=== PATIENT | male | born 1935 | race Caucasian/White ===

== ENCOUNTER 2023-10-02 19:14 | Emergency (ER) | payer BC ==
--- NOTE | 2023-10-02 19:48 | ED ---
General Adult HPI - General Source: patient, family Mode of arrival: ambulatory Limitations: no limitations <Heraclio Do - Last Filed: 10/02/23 19:48> - General Source: RN notes reviewed, old records reviewed Mode of arrival: ambulatory Limitations: no limitations - History of Present Illness -: hour(s) Severity scale (1-10): 0 Improves with: none Worsens with: none Associated Symptoms: confusion <Gary Pruett - Last Filed: 10/09/23 21:53> - General Stated complaint: AMS Time Seen by Provider: 10/02/23 19:47 - History of Present Illness Initial comments: 87-year-old male presenting to the ED with a chief complaint of altered mental status. Per daughter, states starting yesterday has been more confused than usual. Also does note problems with urinary incontinence and reports that he has had increased urinary incontinence. (Heraclio Do) This is an 87-year-old male to the ER for persistent altered mental status which is improved on arrival to the ER. Patient symptoms began earlier this morning where he did not know who family members were who he lives with. Patient does have a complex recent hospitalization which included significant GI bleed with blood loss anemia. Patient had a prolonged hospitalization during that time but has been feeling well at home and felt good yesterday. Patient has no fevers no recent travels no sick contacts no change in medications patient has no complaints himself without headache. (Gary Pruett) - Related Data Allergies Allergy/AdvReac Type Severity Reaction Status Date / Time No Known Allergies Allergy Verified 10/02/23 19:47 Review of Systems ROS Other: All systems not noted in ROS Statement are negative. <Heraclio Do - Last Filed: 10/02/23 19:48> ROS Other: All systems not noted in ROS Statement are negative. <Gary Pruett - Last Filed: 10/09/23 21:53> ROS Statement: Those systems with pertinent positive or pertinent negative responses have been documented in the HPI. Past Medical History Past Medical History: Diabetes Mellitus History of Any Multi-Drug Resistant Organisms: None Reported Past Surgical History: Heart Catheterization, Heart Catheterization With Stent Past Psychological History: No Psychological Hx Reported Smoking Status: Never smoker Past Alcohol Use History: None Reported Past Drug Use History: None Reported <Heraclio Do - Last Filed: 10/02/23 19:48> General Exam Limitations: no limitations <Heraclio Do - Last Filed: 10/02/23 19:48> General appearance: alert, in no apparent distress Head exam: Present: atraumatic, normocephalic, normal inspection Eye exam: Present: normal appearance, PERRL, EOMI. Absent: scleral icterus, conjunctival injection, periorbital swelling ENT exam: Present: normal exam, mucous membranes moist Neck exam: Present: normal inspection. Absent: tenderness, meningismus, lymphadenopathy Respiratory exam: Present: normal lung sounds bilaterally. Absent: respiratory distress, wheezes, rales, rhonchi, stridor Cardiovascular Exam: Present: regular rate, normal rhythm, normal heart sounds. Absent: systolic murmur, diastolic murmur, rubs, gallop, clicks GI/Abdominal exam: Present: soft, normal bowel sounds. Absent: distended, tenderness, guarding, rebound, rigid Extremities exam: Present: normal inspection, full ROM, normal capillary refill. Absent: tenderness, pedal edema, joint swelling, calf tenderness Back exam: Present: normal inspection Neurological exam: Present: alert, oriented X3, CN II-XII intact Psychiatric exam: Present: normal affect, normal mood Skin exam: Present: warm, dry, intact, normal color. Absent: rash <Gary Pruett - Last Filed: 10/09/23 21:53> - General Exam Comments Initial Comments: Visual Physical Exam Vital signs reviewed General: Well-appearing, nontoxic, no acute distress. Head: Normocephalic, atraumatic Eyes: PERRLA, EOMI ENT: Airway patent Chest: Nonlabored breathing Skin: No visual rash, normal skin tone Musculoskeletal: No gross abnormalities (Heraclio Do) Course <Gary Pruett - Last Filed: 10/09/23 21:53> Vital Signs 10/02/23 10/02/23 10/02/23 19:42 21:37 22:15 Temperature 98.9 F Pulse Rate 82 80 75 Respiratory 18 18 16 Rate Blood Pressure 160/65 176/89 180/84 O2 Sat by Pulse 98 99 99 Oximetry 10/02/23 22:55 Temperature Pulse Rate 78 Respiratory 18 Rate Blood Pressure 163/75 O2 Sat by Pulse 97 Oximetry - Reevaluation(s) Reevaluation #1: 10/02/23 22:55 Records reviewed (Gary Pruett) Reevaluation #2: 10/02/23 22:56 Patient remains alert acting appropriately (Gary Pruett) Reevaluation #3: 10/02/23 22:56 Patient informed of results and questions answered (Gary Pruett) Reevaluation #4: Was pt. sent in by a medical professional or institution ([facility], HR CONSULTANT, urgent care, hospital, or group home...) When possible be specific @ -no Did you speak to anyone other than the patient for history (EMS, parent, family, police, friend...)? What history was obtained from this source @ -no Did you review nursing and triage notes (agree or disagree)? Why? @ -agree Are old charts reviewed (outside hosp., previous admission, EMS record, old EKG, old radiological studies, urgent care reports/EKG's, group home records)? Report findings @ -yes Differential Diagnosis (chest pain, altered mental status, abdominal pain women, abdominal pain men, vaginal bleeding, weakness, fever, dyspnea, syncope, headache, dizziness, GI bleed, back pain, seizure, CVA, palpatations, mental health, musculoskeletal)? @ -prior EKG interpreted by me (3pts min.). @ -yes X-rays interpreted by me (1pt min.). @ -yes negative for acute disease CT interpreted by me (1pt min.). @ -Yes negative for acute disease U/S interpreted by me (1pt. min.). @ -no What testing was considered but not performed or refused? (CT, X-rays, U/S, labs)? Why? @ -none What meds were considered but not given or refused? Why? @ -none Did you discuss the management of the patient with other professionals (professionals i.e. [facility], HR CONSULTANT, lab, RT, psych nurse, social services coordinator, rn sane, teacher, corporate security officer, case therapist)? Give summary @ -no Was smoking cessation discussed for >3mins.? @ -no Was critical care preformed (if so, how long)? @ -no Were there social determinants of health that impacted care today? How? (Homelessness, low income, unemployed, alcoholism, drug addiction, transportation, low edu. Level, literacy, decrease access to med. care, care home, rehab)? @ -none Was there de-escalation of care discussed even if they declined (Discuss DNR or withdrawal of care, Hospice)? DNR status @ -no What co-morbidities impacted this encounter? (DM, HTN, Smoking, COPD, CAD, Cancer, CVA, ARF, Chemo, Hep., AIDS, mental health diagnosis, sleep apnea, morbid obesity)? @ -none Was patient admitted / discharged? Hospital course, mention meds given and route, prescriptions, significant lab abnormalities, going to OR and other pertinent info. @ - 87 male to ER for evaluation of altered mental status, confusion and difficulty in recognition of family members. Those symptoms are all resolved here in the ER. Patient has normal lab values and testing here in the ER and can be discharged home Admitted Undiagnosed new problem with uncertain prognosis? @ -no Drug Therapy requiring intensive monitoring for toxicity (Heparin, Nitro, Insu greg, Cardizem)? @ -no Were any procedures done? @ -no Diagnosis/symptom? @ -Altered mental status Acute, or Chronic, or Acute on Chronic? @ -Acute Uncomplicated (without systemic symptoms) or Complicated (systemic symptoms)? @ -Complicated Side effects of treatment? @ -no Exacerbation, Progression, or Severe Exacerbation? @ -exacerbation Poses a threat to life or bodily function? How? (Chest pain, [place], [place], pneumonia, PE, COPD, DKA, ARF, appy, cholecystitis, CVA, Diverticulitis, Homicidal, Suicidal, threat to staff... and all critical care pts) @ -yes extremes of age (Gary Pruett) Reevaluation #5: Differential Altered Mental Status: Hypoglycemia, DKA, hypercapnia, ETOH, overdose, CO poisoning, trauma, myxedema coma, HTN encephalopathy, infection, encephalitis, psychosis, intercranial hemorrhage, hepatic encephalopathy, meningitis, CVA, this is not meant to be an all-inclusive list (Gary Pruett) EKG Findings - EKG Comments: EKG Findings:: EKG is sinus 87 TX 153 QRS 77 QTc 410 - EKG Results: EKG: interpreted by ERMD <Gary Pruett - Last Filed: 10/09/23 21:53> Medical Decision Making <Heraclio Do - Last Filed: 10/02/23 19:48> - Lab Data Result diagrams: 10/02/23 20:33 10/02/23 20:33 - EKG Data -: EKG Interpreted by Me - Radiology Data Radiology results: report reviewed (CT brain and chest x-ray is negative for acute disease), image reviewed <Gary Pruett - Last Filed: 10/09/23 21:53> - Medical Decision Making Quicknote portion performed. Signed Heraclio Do PA-C (Heraclio Do) 87 male to ER for evaluation of altered mental status, confusion and difficulty in recognition of family members. Those symptoms are all resolved here in the ER. Patient has normal lab values and testing here in the ER and can be discharged home (Gary Pruett) - Lab Data Lab Results 10/02/23 10/02/23 10/02/23 Range/Units 19:49 20:33 20:33 WBC 7.8 (3.8-10.6) k/uL RBC 3.52 L (4.30-5.90) m/uL Hgb 10.2 L (13.0-17.5) gm/dL Hct 33.8 L (39.0-53.0) % MCV 95.8 (80.0-100.0) fL MCH 28.8 (25.0-35.0) pg MCHC 30.1 L (31.0-37.0) g/dL RDW 12.8 (11.5-15.5) % Plt Count 242 (150-450) k/uL MPV 9.4 Neutrophils % 53 % Lymphocytes % 31 % Monocytes % 6 % Eosinophils % 7 % Basophils % 1 % Neutrophils # 4.2 (1.3-7.7) k/uL Lymphocytes # 2.4 (1.0-4.8) k/uL Monocytes # 0.5 (0-1.0) k/uL Eosinophils # 0.5 (0-0.7) k/uL Basophils # 0.1 (0-0.2) k/uL Hypochromasia Slight PT 10.1 (10.0-12.5) sec INR 0.9 (<1.2) APTT 23.1 (22.0-30.0) sec Sodium (137-145) mmol/L Potassium (3.5-5.1) mmol/L Chloride (98-107) mmol/L Carbon Dioxide (22-30) mmol/L Anion Gap mmol/L BUN (9-20) mg/dL Creatinine (0.66-1.25) mg/dL Est GFR (CKD-EPI)AfAm (>60 ml/min/1.73 sqM) Est GFR (CKD-EPI)NonAf (>60 ml/min/1.73 sqM) Glucose (74-99) mg/dL Plasma Lactic Acid Messi (0.7-2.0) mmol/L Calcium (8.4-10.2) mg/dL Phosphorus (2.5-4.5) mg/dL Magnesium (1.6-2.3) mg/dL Total Bilirubin (0.2-1.3) mg/dL AST (17-59) U/L ALT (4-49) U/L Alkaline Phosphatase (38-126) U/L Ammonia (<30) umol/L Troponin I (0.000-0.034) ng/mL Total Protein (6.3-8.2) g/dL Albumin (3.5-5.0) g/dL TSH (0.465-4.680) mIU/L Urine Color Colorless Urine Appearance Clear (Clear) Urine pH 6.5 (5.0-8.0) Ur Specific [place] 1.016 (1.001-1.035) Urine Protein Negative (Negative) Urine Glucose (UA) 3+ H (Negative) Urine Ketones Negative (Negative) Urine Blood Negative (Negative) Urine Nitrite Negative (Negative) Urine Bilirubin Negative (Negative) Urine Urobilinogen <2.0 (<2.0) mg/dL Ur Leukocyte Esterase Negative (Negative) Salicylates mg/dL Acetaminophen ug/mL Acetone, Qual (Negative) 10/02/23 10/02/23 10/02/23 Range/Units 20:33 20:33 21:04 WBC (3.8-10.6) k/uL RBC (4.30-5.90) m/uL Hgb (13.0-17.5) gm/dL Hct (39.0-53.0) % MCV (80.0-100.0) fL MCH (25.0-35.0) pg MCHC (31.0-37.0) g/dL RDW (11.5-15.5) % Plt Count (150-450) k/uL MPV Neutrophils % % Lymphocytes % % Monocytes % % Eosinophils % % Basophils % % Neutrophils # (1.3-7.7) k/uL Lymphocytes # (1.0-4.8) k/uL Monocytes # (0-1.0) k/uL Eosinophils # (0-0.7) k/uL Basophils # (0-0.2) k/uL Hypochromasia PT (10.0-12.5) sec INR (<1.2) APTT (22.0-30.0) sec Sodium 137 (137-145) mmol/L Potassium 4.6 (3.5-5.1) mmol/L Chloride 104 (98-107) mmol/L Carbon Dioxide 23 (22-30) mmol/L Anion Gap 10 mmol/L BUN 28 H (9-20) mg/dL Creatinine 0.96 (0.66-1.25) mg/dL Est GFR (CKD-EPI)AfAm 82 (>60 ml/min/1.73 sqM) Est GFR (CKD-EPI)NonAf 71 (>60 ml/min/1.73 sqM) Glucose 299 H (74-99) mg/dL Plasma Lactic Acid Messi 1.6 (0.7-2.0) mmol/L Calcium 9.5 (8.4-10.2) mg/dL Phosphorus (2.5-4.5) mg/dL Magnesium 1.5 L (1.6-2.3) mg/dL Total Bilirubin 0.4 (0.2-1.3) mg/dL AST 23 (17-59) U/L ALT 15 (4-49) U/L Alkaline Phosphatase 74 (38-126) U/L Ammonia <9 (<30) umol/L Troponin I <0.012 (0.000-0.034) ng/mL Total Protein 7.4 (6.3-8.2) g/dL Albumin 3.9 (3.5-5.0) g/dL TSH (0.465-4.680) mIU/L Urine Color Urine Appearance (Clear) Urine pH (5.0-8.0) Ur Specific [place] (1.001-1.035) Urine Protein (Negative) Urine Glucose (UA) (Negative) Urine Ketones (Negative) Urine Blood (Negative) Urine Nitrite (Negative) Urine Bilirubin (Negative) Urine Urobilinogen (<2.0) mg/dL Ur Leukocyte Esterase (Negative) Salicylates mg/dL Acetaminophen ug/mL Acetone, Qual (Negative) 10/02/23 Range/Units 21:04 WBC (3.8-10.6) k/uL RBC (4.30-5.90) m/uL Hgb (13.0-17.5) gm/dL Hct (39.0-53.0) % MCV (80.0-100.0) fL MCH (25.0-35.0) pg MCHC (31.0-37.0) g/dL RDW (11.5-15.5) % Plt Count (150-450) k/uL MPV Neutrophils % % Lymphocytes % % Monocytes % % Eosinophils % % Basophils % % Neutrophils # (1.3-7.7) k/uL Lymphocytes # (1.0-4.8) k/uL Monocytes # (0-1.0) k/uL Eosinophils # (0-0.7) k/uL Basophils # (0-0.2) k/uL Hypochromasia PT (10.0-12.5) sec INR (<1.2) APTT (22.0-30.0) sec Sodium (137-145) mmol/L Potassium (3.5-5.1) mmol/L Chloride (98-107) mmol/L Carbon Dioxide (22-30) mmol/L Anion Gap mmol/L BUN (9-20) mg/dL Creatinine (0.66-1.25) mg/dL Est GFR (CKD-EPI)AfAm (>60 ml/min/1.73 sqM) Est GFR (CKD-EPI)NonAf (>60 ml/min/1.73 sqM) Glucose (74-99) mg/dL Plasma Lactic Acid Messi (0.7-2.0) mmol/L Calcium (8.4-10.2) mg/dL Phosphorus 4.1 (2.5-4.5) mg/dL Magnesium (1.6-2.3) mg/dL Total Bilirubin (0.2-1.3) mg/dL AST (17-59) U/L ALT (4-49) U/L Alkaline Phosphatase (38-126) U/L Ammonia (<30) umol/L Troponin I (0.000-0.034) ng/mL Total Protein (6.3-8.2) g/dL Albumin (3.5-5.0) g/dL TSH 4.530 (0.465-4.680) mIU/L Urine Color Urine Appearance (Clear) Urine pH (5.0-8.0) Ur Specific [place] (1.001-1.035) Urine Protein (Negative) Urine Glucose (UA) (Negative) Urine Ketones (Negative) Urine Blood (Negative) Urine Nitrite (Negative) Urine Bilirubin (Negative) Urine Urobilinogen (<2.0) mg/dL Ur Leukocyte Esterase (Negative) Salicylates <1.0 mg/dL Acetaminophen <10.0 ug/mL Acetone, Qual Negative (Negative) Disposition <Heraclio Do - Last Filed: 10/02/23 19:48> Is patient prescribed a controlled substance at d/c from ED?: No Time of Disposition: 22:50 <Gary Pruett - Last Filed: 10/09/23 21:53> Clinical Impression: Altered mental status Disposition: HOME SELF-CARE Condition: Undetermined Instructions (If sedation given, give patient instructions): Altered Mental Status (ED) Referrals: Nonstaff,Physician [Primary Care Provider] - 1-2 days
[2023-10-02 20:58] LABS: Basophils # (A) 0.1 k/uL (0-0.2); Basophils % (A) 1 %; Eosinophils # (A) 0.5 k/uL (0-0.7); Eosinophils % (A) 7 %; HCT 33.8 % (39.0-53.0); HGB 10.2 gm/dL (13.0-17.5); Hypochromasia Slight; Lymphocytes # (A) 2.4 k/uL (1.0-4.8); Lymphocytes % (A) 31 %; MCH 28.8 pg (25.0-35.0); MCHC 30.1 g/dL (31.0-37.0); MCV 95.8 fL (80.0-100.0); Mean Platelet Volume 9.4; Monocytes # (A) 0.5 k/uL (0-1.0); Monocytes % (A) 6 %; Neutrophils # (A) 4.2 k/uL (1.3-7.7); Neutrophils % (A) 53 %; Platelet Count 242 k/uL (150-450); RBC 3.52 m/uL (4.30-5.90); RDW 12.8 % (11.5-15.5); WBC 7.8 k/uL (3.8-10.6)
[2023-10-02 21:07] LABS: INR 0.9 (<1.2); Partial Thromboplastin Time 23.1 sec (22.0-30.0); Prothrombin Time 10.1 sec (10.0-12.5)
[2023-10-02 21:10] VITALS: TEMP 98.9
[2023-10-02 21:24] LABS: ALT 15 U/L (4-49); AST 23 U/L (17-59); African American GFR (CKD) 82 (>60 ml/min/1.73 sqM); Albumin 3.9 g/dL (3.5-5.0); Alkaline Phosphatase 74 U/L (38-126); Anion Gap 10 mmol/L; Blood Urea Nitrogen 28 mg/dL (9-20); Calcium 9.5 mg/dL (8.4-10.2); Carbon Dioxide 23 mmol/L (22-30); Chloride 104 mmol/L (98-107); Glucose 299 mg/dL (74-99); Magnesium 1.5 mg/dL (1.6-2.3); Non-African American GFR(CKD) 71 (>60 ml/min/1.73 sqM); Potassium 4.6 mmol/L (3.5-5.1); Sodium 137 mmol/L (137-145); Total Bilirubin 0.4 mg/dL (0.2-1.3); Total Protein 7.4 g/dL (6.3-8.2)
[2023-10-02 21:34] LABS: Lactic Acid, Venous 1.6 mmol/L (0.7-2.0)
[2023-10-02 21:46] LABS: Acetaminophen <10.0 ug/mL; Phosphorus 4.1 mg/dL (2.5-4.5); Salicylate <1.0 mg/dL
--- NOTE | 2023-10-02 21:46 | CT ---
EXAMINATION TYPE: CT brain wo con CT DLP: 1163.9 mGycm, Automated exposure control for dose reduction was used. DATE OF EXAM: 10/02/2023 8:53 PM COMPARISON: None. CLINICAL INDICATION:Male, 87 years old with history of AMS, WEAK TECHNIQUE: Brain: Axial CT images of the brain were obtained with coronal and sagittal reformats created and rev iewed. Contrast used: None. Oral contrast used: None. FINDINGS: Extra-axial spaces: No abnormal extra-axial fluid collections. Basilar cisterns are patent. Ventricular system: Ventricles appear dilated in proportion to the degree of cerebral atrophy. Cerebral parenchyma: No increased attenuation to suggest acute intraparenchymal hemorrhage. The gra y-white matter interface appears maintained. Moderate to severe generalized brain atrophy. Scattere d hypoattenuating areas are seen within the cerebral white matter, nonspecific but most often seen wi th chronic microvascular ischemic changes; mild/moderate in degree. Cerebellum: No acute abnormality. Mass effect: No evidence of mass effect or midline shift. Intracranial vasculature: Atherosclerotic calcifications of the larger arteries near the skull base. Soft tissues: No acute or concerning abnormality. Visualized orbits: Orbital contents appear grossly intact. Radiodensities along the globes likely s equela of previous ophthalmologic surgery. Calvarium/osseous structures: No evidence of calvarial fracture. Paranasal sinuses and mastoid air cells: Mild scattered paranasal sinus mucosal thickening. Mild jacinda al septal deviation to the right. Mastoids are clear. MRI is more sensitive for detecting acute processes such as infarct, and may be considered if clinica lly warranted. IMPRESSION: 1. No acute intracranial CT abnormality. 2. Moderate to severe generalized brain atrophy.
[2023-10-02] MEDS: MAGNESIUM SULFATE-D5W PMX 1 GM in DEXTROSE/WATER 1 100ML.BAG IVPB ONE (22:16)
[2023-10-02 22:22] LABS: Appearance,Urine Clear (Clear); Bilirubin,Urine Negative (Negative); Blood,Urine Negative (Negative); Color,Urine Colorless; Glucose,Urine (UA) 3+ (Negative); Ketones,Urine Negative (Negative); Leukocyte Esterase,Urine Negative (Negative); Nitrite,Urine Negative (Negative); PH, Urine 6.5 (5.0-8.0); Protein,Urine Negative (Negative); Specific Gravity,Urine 1.016 (1.001-1.035); Urobilinogen,Urine <2.0 mg/dL (<2.0)
[2023-10-02] MEDS: MAGNESIUM OXIDE 400 MG TAB PO STA (22:22)
[2023-10-02 22:59] VITALS: BP 163/75; PULSE 78; RESP 18
--- NOTE | 2023-10-02 23:15 | XR ---
EXAMINATION TYPE: XR chest 2V DATE OF EXAM: 10/02/2023 8:57 PM CLINICAL INDICATION:Male, 87 years old with history of altered mental status; [facility] COMPARISON: None TECHNIQUE: XR chest 2V. Frontal and lateral views of the chest.. FINDINGS: Lines/Tubes/Devices: No indwelling lines are seen. Heart/mediastinum: Heart appears mildly enlarged. Partially calcified aortic knob with slight trache al deviation to the right at this level. Central airways appear grossly patent. Pulmonary vascularity: Adela appear relatively symmetric. Possible slight pulmonary vascular congestio n is suggested. Lungs/Pleura: Previously increased interstitial markings bilaterally with question of small nodular d ensities over both lungs. No airspace consolidation, sizable effusion, or pneumothorax shown. Musculoskeletal: No clearly acute osseous abnormality demonstrated in the limits of the exam. Mild/m oderate multilevel degenerative disc disease in the spine. Other findings: None. IMPRESSION: 1. Cardiomegaly. ASVD of the aorta. 2. Possible slight pulmonary vascular congestion. 3. Diffusely increased interstitial markings may reflect chronic changes and/or edema. 4. Nonspecific small nodular densities suggested over both lungs. Follow-up advised, this may includ e CT when appropriate for better characterization.
== END 2023-10-02 23:30 | disposition home or self-care (01) ==
LOC: EC 19:14
DX: R41.82 Altered mental status, unspecified (principal)
CPT/HCPCS: 36415; 93005; 80053; 82140; 82009; 83605; 83735; 84100; 84443; 84484; 85025; 85610; 85730; 81003; 80143; 80179; 71046; 70450; 99285; 96365; J3475